=== PATIENT | female | born 1950 | race Caucasian/White ===

== ENCOUNTER 2017-04-19 19:31 | Inpatient (IN) | payer OTHER ==
[~2017-04-19] VITALS: Ht 160 cm; Wt 97.8 kg
--- NOTE | ~2017-04-19 | HC ---
[facility] [place] [address] CONSULTATION Name: AYAH SQUIRES HORTENCIA Room #: 239-[facility] IN M.R.#: [id number] Admission: 04/19/17 Attend Phys: Jose Beltre MD, FAAF Discharge: 04/22/17 Date of : 54 Report #: [id number] THIS REPORT FOR: //name// CC: Jose Beltre DATE OF SERVICE: 04/20/2017 REASON FOR CONSULTATION: Respiratory failure. IMPRESSION: 1. Acute respiratory failure. 2. Severe sepsis. 3. Right-sided infiltrates, effusion and a question pneumothorax. 4. Chronic kidney disease. 5. Hyperglycemia. 6. Protein calorie malnutrition. 7. Leukocytosis. 8. Thrombocytosis. 9. Bandemia. 10. Altered mental status. PAST MEDICAL HISTORY: Per chart include hypertension, paranoid schizophrenia, ETOH, hemorrhoids, hyperlipidemia, seasonal allergies. HOME MEDICATIONS: Included allopurinol, ketoconazole topical, Lasix, potassium, atorvastatin, metformin, oxybutynin, Latuda. SOCIAL HISTORY: Negative ETOH. REVIEW OF SYSTEMS: Unobtainable. PHYSICAL EXAMINATION: VITAL SIGNS: Poor dentition, currently intubated. LUNGS: Decreased breath sounds on right. HEART: Rate occasionally irregular. ABDOMEN: Bowel sounds present. EXTREMITIES: Showed no edema. LABORATORY DATA: 7.43, pCO2 of 27, pO2 66 on 5 liters. BUN 18, creatinine 1.7. Potassium 3.7. Glucose 251. Albumin 23. ProBNP 1204. White count 14.2, hemoglobin 12.9, D-dimer 3.93. Chest x-ray difficult to read, opacification lateral right chest wall. There was a question of pneumothorax. V/Q scan nondiagnostic, lactate 5.7. Repeat chest showed worsening in [facility] [address] [place] [address] CONSULTATION Name: AYAH SQUIRES [facility] Room #: 239-P DIS IN M.R.#: [id number] Admission: 04/19/17 Attend Phys: [facility] Discharge: 04/22/17 Date of : 54 Report #: [id number] opacification, right chest, question small apical pneumothorax. Repeat chest, endotracheal tube in place. <ELECTRONICALLY SIGNED> By: Emma Parrish MD 05/11/17 1503 [id number] [id number] Emma Parrish MD /nt
--- NOTE | ~2017-04-19 | CNG ---
[facility] [place] [address] CYTO-NONGYN REPORT PROCEDURE Name: JUANA SQUIRES Room #: 239-P ADM IN M.R.#: [id number] Admission: 04/19/17 Date of : 54 Discharge: Report #: [id number] Path Case #: [id number] CYTOPATHOLOGY REPORT COLLECTION DATE: 04/20/2017 RECEIVED DATE: 04/20/2017 SUBMITTING PHYS: Dr. Emma Parrish OTHER PHYS: Dr. Jose Beltre CLINICAL HISTORY: Septic shock, CAP. SPECIMEN(S) RECEIVED: A.Pleural fluid * * * * * * * * * * * * FINAL DIAGNOSIS: A. Pleural fluid: - No malignant cells identified. - Reactive mesothelial cells with abundant acute and chronic inflammatory cells. PATHOLOGIST: Vanita Soriano M.D. REPORT ELECTRONICALLY SIGNED BY: Vanita Soriano M.D. DATE/TIME: 04/21/2017 16:25 * * * * * * * * * * * * GROSS PATHOLOGY: A. Pleural fluid: The specimen is submitted unfixed, labeled "Juana Squires". Received by the Cytology Department is four mL of cloudy yellow fluid. One ThinPrep slide and a cell block were prepared. (clt 04.20.2017) INFORMATION SYSTEMS ADMINISTRATOR(S): SALVATORE Garrison(ASCP) INITIAL CPT CODE(S): A; 11572, 96403 Professional services performed by [facility] at [facility] , [place] [address] Technical services performed by [facility] at [address] [place] [address]., [address], [place] [address]. [facility] [address] [place] [address], [facility] [address] [place] [address] PHONE: [phone] [facility] [address] [place] [address] CYTO-NONGYN REPORT PROCEDURE Name: JUANA SQUIRES HORTENCIA Room #: 239-P ADM IN M.R.#: [id number] Admission: 04/19/17 Date of : 54 Discharge: Report #: [id number] Path Case #: [id number] DIRECTOR: Stephen Mccoy M.D. * * * END OF REPORT * * *
--- NOTE | ~2017-04-19 | EKG ---
[address] [address] ELECTROCARDIOGRAM REPORT Name: AYAH SQUIRES Room #: 239-P ADM IN M.R.#: [id number] Admission: 04/19/17 Attend Phys: Jose Beltre MD, FAAF Discharge: Date of : 54 Report #: [id number] THIS REPORT FOR: //name// [facility] ED Test Date: 2017-04-19 Test Time: 19:47:07 Pat Name: AYAH SQUIRES Department: Room: 239 Gender: F Chef Assistant: jeffery faulkner : 1950 Requested By: Aramis Chow Order Number: [id number] MD: Ajit Evans Measurements Intervals Forbes Rate: 147 P: 43 NC: 122 QRS: 7 QRSD: 81 T: -14 QT: 285 QTc: 446 Interpretive Statements Possible atrial fibrillation vs atrial tachycardia Borderline T abnormalities, inferior leads Compared to ECG 12/06/2012 20:42:39 T-wave abnormality now present Sinus rhythm no longer present Electronically Signed On 04-20-2017 13:16:39 CDT by Ajit Evans [email or web address] <ELECTRONICALLY SIGNED> By: Ajit Evans MD 04/20/17 1316 46 46 Ajit Evans MD /EPI
--- NOTE | ~2017-04-19 | 2DMMODE ---
[facility] [address] [place] [address] 2 D/M-MODE ECHOCARDIOGRAM Name: AYAH SQUIRES HORTENCIA Room #: 239-P ADM IN .R.#: [id number] Admission: 04/19/17 Attend Phys: Jose Beltre MD, Discharge: Date of : 54 Date of Service: 04/20/17 1429 Report #: [id number] THIS REPORT FOR: //name// APPROVED REPORT Study performed: 04/20/2017 11:08:48 EXAM: Comprehensive 2D, Doppler, and color-flow Echocardiogram Patient Location: ICU Room #: 239 Status: routine Other Information Study Quality: Fair Indications Hypertension/HDD 2D Dimensions RVDd: 37.80 mm LVEF(%): 77.02 (>50%) IVSd: 11.59 (7-11mm) LVOT Diam: 18.10 (18-24mm) LVDd: 27.76 mm PWd: 11.71 (7-11mm) Ascending Ao: 26.08 (22-36mm) LVDs: 15.55 (25-40mm) Aortic Root: 28.63 mm Edmond's LVEF: 77.02 % Volumes Left Atrial Volume (Systole) Single Plane 4CH: 23.16 mL Single Plane 2CH: 19.99 mL LA ESV Index: 13.00 mL/m2 Aortic Valve AoV Peak Glynn.: 1.45 m/s AO Peak Gr.: 8.39 mmHg LVOT Max P.89 mmHg LVOT Max V: 1.21 m/s YASMIN Vmax: 2.16 cm2 Mitral Valve E/A Ratio: 1.1 MV Decel. Time: 261.85 ms MV E Max Glynn.: 0.65 m/s MV A Glynn.: 0.57 m/s MV PHT: 75.94 ms IVRT: 92.27 ms [facility] [address] [place] [address] 2 D/M-MODE ECHOCARDIOGRAM Name: AYAH SQUIRES [facility] Room #: 239-P [facility] IN ..#: [id number] Admission: 04/19/17 Attend Phys: Jose Beltre MD, Discharge: Date of : 54 Date of Service: 04/20/17 1429 Report #: [id number] Pulmonary Valve PV Peak Glynn.: 0.99 m/s PV Peak Gr.: 3.89 mmHg Pulmonary Vein P Vein S: 0.45 m/s P Vein A: 0.26 m/s P Vein D: 0.32 m/s P Vein A Dur.: 96.9 msec P Vein S/D Ratio: 1.41 Tricuspid Valve TR Peak Glynn.: 3.82 m/s TR Peak Gr.: 58.28 mmHg Left Ventricle The left ventricle is normal size. Mild concentric left ventricular hypertrophy. Left ventricular systolic function is hyperdynamic. LVEF is >70%. This study is not technically sufficient to allow evaluation of the LV diastolic function. Right Ventricle The right ventricle is normal size. The right ventricular systolic function is normal. Atria The left atrium size is normal. The right atrium size is normal. Aortic Valve The aortic valve is normal in structure. No aortic regurgitation is present. There is no aortic valvular stenosis. Mitral Valve The mitral valve is normal in structure. Trace to mild mitral regurgitation. No evidence of mitral valve stenosis. Tricuspid Valve The tricuspid valve is normal in structure. There is moderate tricuspid regurgitation. The right atrial pressure is estimated at mmHg. There is moderate pulmonary hypertension. The estimated PAP was 58 mmHg plus the right atrial pressure. Pulmonic Valve The pulmonary valve is normal in structure. There is no pulmonic valvular regurgitation. Great Vessels [facility] [address] [place] [address] 2 D/M-MODE ECHOCARDIOGRAM Name: AYAH SQUIRES [facility] Room #: 239-P [facility] IN .R.#: [id number] Admission: 04/19/17 Attend Phys: Jose Beltre MD, Discharge: Date of : 54 Date of Service: 04/20/17 1429 Report #: [id number] The aortic root is normal in size. IVC is not visualized. Pericardium There is no pericardial effusion. <Conclusion> The left ventricle is normal size. LVEF is >70%. The aortic valve is normal in structure. The mitral valve is normal in structure. Trace to mild mitral regurgitation. The tricuspid valve is normal in structure. There is moderate tricuspid regurgitation. The right atrial pressure is estimated at mmHg. There is moderate pulmonary hypertension. The estimated PAP was 58 mmHg plus the right atrial pressure. <ELECTRONICALLY SIGNED> By: Finesse Reyes MD 04/20/17 1429 1429 1429 Finesse Reyes MD /INF
[~2017-04-19 19:31] MED LIST: ACETAMINOPHEN325 M1 PO; ALAVERT10 MG PO; ANAPROX DS550 MG PO; BACTRIM DS TAB1 EACH PO; BISMATROL262 MG/15 PO; CENTRUM SILVER1 EAC1 PO; CIPROFLOXACIN500 M1 PO; COLCHICINE 0.60.6 M1 PO; EC-NAPROSYN500 MG PO; ENABLEX15 MG PO; FANAPT1 EACH PO; FUROSEMIDE 40 M40 M1 PO; LATUDA40 MG PO; LISINOPRIL20 MG PO; MAALOX SUSPENS148 ML PO; MACROBID 100 M100 M1 PO; NORCO 7.5-3251 EACH PO; ONE-A-DAY WOMENS PO; PRINZIDE 20-121 EACH PO; PRISTIQ50 M1 PO; ROZEREM 8 MG TAB8 M1 PO; SIMVASTATIN20 MG PO; TOVIAZ8 MG PO; VIIBRYD40 MG PO; ZOCOR 20 MG TAB20 M1 PO
[2017-04-19 19:32] VITALS: BP 114/64; BP 123/64
[2017-04-19 19:56] LABS: HEMATOCRIT 40.1 % (37.0-47.0); HEMOGLOBIN 12.9 gm/dL (12.0-15.0); MANUAL DIFF YES; MCH 28.9 pg (26.0-34.0); MCHC 32.1 g/dL (28.0-37.0); MCV 90.2 fL (80.0-100.0); PLATELET COUNT 608 thou/uL (150-400); RBC 4.45 mil/uL (4.20-5.00); RDW 15.7 % (10.5-14.5); WBC 14.2 thou/uL (4.0-11.0)
[2017-04-19 20:09] LABS: ANION GAP 18 mmol/L (7-16); BUN 18 mg/dL (7-18); CALCIUM 9.5 mg/dL (8.5-10.1); CHLORIDE 98 mmol/L (98-107); CO2 21 mmol/L (21-32); CREATININE 1.7 mg/dL (0.6-1.0); GLUCOSE 251 mg/dL (74-106); POTASSIUM 3.7 mmol/L (3.5-5.1); SODIUM 137 mmol/L (136-145)
[2017-04-19 20:11] LABS: ABG SAMPLE TYPE ARTERIAL; BE(vivo) -5.1 mmol/L (-2 to +3); HCO3 17.7 mmol/L (22.0-26.0); LACTATE 6.53 mmol/L (0.5-2.0); O2(CT) 17.2 mL/dL (15.0-23.0); O2Hb 91.3 % (92.0-98.0); PCO2 27.1 mmHg (35.0-45.0); PO2 66.1 mmHg (80.0-100.0); STICK SITE R.RADIAL; pH 7.432 (7.360-7.450); tCO2 18.5 mmol/L (24.0-30.0)
[2017-04-19 20:13] LABS: ALBUMIN 2.3 g/dL (3.4-5.0); ALKALINE PHOSPHATASE 107 U/L (46-116); SGOT 58 U/L (15-37); SGPT 61 U/L (30-65); TOTAL BILIRUBIN 0.8 mg/dL (<0.1-1.0); TOTAL PROTEIN 7.5 g/dL (6.4-8.2); TROPONIN-I < 0.04 ng/mL (<0.04-0.07)
[2017-04-19 20:16] LABS: MAGNESIUM 0.8 mg/dL (1.8-2.4)
[2017-04-19 20:20] LABS: ABSOLUTE NEUTROPHILS 12.4 thou/uL (1.4-8.2); TOTAL CELL COUNT 100
[2017-04-19] MEDS ORDERED: K-DUR 20 MEQ T20 MEQ PO (21:06)
[2017-04-19] MEDS ORDERED: ALLOPURINOL 30300 M2 PO (21:06)
[2017-04-19] MEDS ORDERED: LASIX 20 MG TAB20 MG PO (21:06)
[2017-04-19] MEDS ORDERED: KETOCONAZOLE120 ML TOP (21:06)
[2017-04-19] MEDS ORDERED: ATORVASTATIN CA40 MG PO (21:07)
[2017-04-19] MEDS ORDERED: METFORMIN HCL1000 MG PO (21:07)
[2017-04-19] MEDS ORDERED: DITROPAN XL5 MG PO (21:07)
[2017-04-19 23:26] LABS: APTT 29.9 Seconds (24.5-32.8); INR 1.3; PROTIME 13.2 Seconds (9.3-11.4)
[2017-04-20] VITALS (32 sets, daily range): BP systolic 62–148; BP diastolic 40–98
[2017-04-20 02:22] LABS: ABG SAMPLE TYPE ARTERIAL; BE(vivo) -6.4 mmol/L (-2 to +3); FIO2 100 %; HCO3 19.2 mmol/L (22.0-26.0); LACTATE 2.92 mmol/L (0.5-2.0); O2(CT) 16.7 mL/dL (15.0-23.0); O2Hb 93.3 % (92.0-98.0); PCO2 38.6 mmHg (35.0-45.0); PO2 79.9 mmHg (80.0-100.0); pH 7.315 (7.360-7.450); sO2 94.9 % (92.0-98.0); tCO2 20.4 mmol/L (24.0-30.0)
[2017-04-20 02:23] LABS: TIDAL VOLUME 450 ml
[2017-04-20 05:18] LABS: APTT 36.9 Seconds (24.5-32.8); INR 1.4
[2017-04-20 05:55] LABS: POTASSIUM 4.3 mmol/L (3.5-5.1)
[2017-04-20 05:56] LABS: CALCIUM 8.3 mg/dL (8.5-10.1); CREATININE 1.5 mg/dL (0.6-1.0); TOTAL BILIRUBIN 0.7 mg/dL (<0.1-1.0); TOTAL PROTEIN 5.8 g/dL (6.4-8.2)
[2017-04-20 06:05] LABS: MANUAL DIFF YES; RBC 4.52 mil/uL (4.20-5.00); WBC 14.2 thou/uL (4.0-11.0)
[2017-04-20 06:06] LABS: HEMATOCRIT 42.6 % (37.0-47.0); HEMOGLOBIN 12.9 gm/dL (12.0-15.0); MCH 28.6 pg (26.0-34.0); MCHC 30.4 g/dL (28.0-37.0); MCV 94.1 fL (80.0-100.0); RDW 16.6 % (10.5-14.5)
[2017-04-20 08:38] LABS: ABSOLUTE NEUTROPHILS 11.4 thou/uL (1.4-8.2); METAMYELOCYTES 6 %; MYELOCYTES 2 %; PLATELET COUNT 379 thou/uL (150-400); TOTAL CELL COUNT 100
[2017-04-20 08:39] LABS: PLATELET ESTIMATE NORMAL
[2017-04-20 09:32] LABS: ABG SAMPLE TYPE ARTERIAL; BE(vivo) -12.8 mmol/L (-2 to +3); HCO3 14.7 mmol/L (22.0-26.0); LACTATE 2.79 mmol/L (0.5-2.0); O2(CT) 15.7 mL/dL (15.0-23.0); O2Hb 93.5 % (92.0-98.0); PCO2 39.3 mmHg (35.0-45.0); PO2 88.4 mmHg (80.0-100.0); STICK SITE LINE; sO2 94.7 % (92.0-98.0); tCO2 15.9 mmol/L (24.0-30.0)
[2017-04-20 09:33] LABS: TIDAL VOLUME 450 ml
[2017-04-20 09:59] LABS: ABSOLUTE NEUTROPHILS 11.7 thou/uL (1.4-8.2); BASOPHILS 0.5 % (0.0-2.0); HEMATOCRIT 35.1 % (37.0-47.0); HEMOGLOBIN 11.1 gm/dL (12.0-15.0); MCH 28.8 pg (26.0-34.0); MCHC 31.7 g/dL (28.0-37.0); MCV 91.1 fL (80.0-100.0); POLYS 84.5 % (36.0-66.0); RBC 3.85 mil/uL (4.20-5.00); RDW 16.1 % (10.5-14.5); WBC 13.8 thou/uL (4.0-11.0)
[2017-04-20 10:05] LABS: MANUAL DIFF NO; PLATELET COUNT 454 thou/uL (150-400)
[2017-04-20 10:07] LABS: CALCIUM 6.7 mg/dL (8.5-10.1); CREATININE 1.3 mg/dL (0.6-1.0)
[2017-04-20 10:08] LABS: AMYLASE 14 U/L (25-115)
[2017-04-20 10:09] LABS: ABG SAMPLE TYPE VENOUS; BE(vivo) -12.9 mmol/L (-2 to +3); HCO3 15.4 mmol/L (22.0-26.0); O2(CT) 14.2 mL/dL (15.0-23.0); PCO2 VENOUS 44.2 mmHg (41.0-51.0); PO2 VENOUS 55.5 mmHg (35.0-45.0); sO2 VENOUS 80.2 % (65.0-85.0); tCO2 16.7 mmol/L (24.0-30.0)
[2017-04-20 10:10] LABS: ALBUMIN 1.2 g/dL (3.4-5.0); PHOSPHORUS 4.5 mg/dL (2.5-4.9)
[2017-04-20 10:10] LABS: STICK SITE LINE
[2017-04-20 10:12] LABS: APTT 36.3 Seconds (24.5-32.8); FIBRINOGEN 487.7 mg/dL (210-360)
[2017-04-20 10:28] LABS: CLARITY CLOUDY; COLOR YELLOW; TOTAL VOLUME 10 mL
[2017-04-20 10:46] LABS: URINE BILIRUBIN NEGATIVE (Negative); URINE BLOOD NEGATIVE (Negative); URINE COLOR YELLOW; URINE GLUCOSE-RANDOM* NEGATIVE (Negative); URINE KETONES NEGATIVE (Negative); URINE NITRITE NEGATIVE (Negative); URINE PROTEIN (DIPSTICK) TRACE (Negative); URINE SPECIFIC GRAVITY >= 1.030 (1.003-1.035)
[2017-04-20 11:03] LABS: ABG SAMPLE TYPE VENOUS; BE(vivo) -12.3 mmol/L (-2 to +3); HCO3 15.3 mmol/L (22.0-26.0); LACTATE 3.02 mmol/L (0.5-2.0); O2(CT) 12.2 mL/dL (15.0-23.0); O2Hb VENOUS 64.7 (65.0-85.0); PCO2 VENOUS 41.2 mmHg (41.0-51.0); PO2 VENOUS 40.9 mmHg (35.0-45.0); STICK SITE LINE; sO2 VENOUS 64.5 % (65.0-85.0); tCO2 16.6 mmol/L (24.0-30.0)
[2017-04-20 12:04] LABS: ABG SAMPLE TYPE VENOUS; BE(vivo) -12.2 mmol/L (-2 to +3); HCO3 14.5 mmol/L (22.0-26.0); LACTATE 2.92 mmol/L (0.5-2.0); O2(CT) 11.8 mL/dL (15.0-23.0); O2Hb VENOUS 67.7 (65.0-85.0); PCO2 VENOUS 36.2 mmHg (41.0-51.0); PO2 VENOUS 40.9 mmHg (35.0-45.0); sO2 VENOUS 66.9 % (65.0-85.0); tCO2 15.7 mmol/L (24.0-30.0)
[2017-04-20 12:05] LABS: STICK SITE LINE
[2017-04-20 13:00] LABS: ABG SAMPLE TYPE VENOUS; BE(vivo) -11.9 mmol/L (-2 to +3); LACTATE 3.26 mmol/L (0.5-2.0); O2(CT) 12.4 mL/dL (15.0-23.0); O2Hb VENOUS 68.4 (65.0-85.0); PCO2 VENOUS 37.4 mmHg (41.0-51.0); PO2 VENOUS 40.7 mmHg (35.0-45.0); STICK SITE LINE; sO2 VENOUS 66.4 % (65.0-85.0); tCO2 16.1 mmol/L (24.0-30.0)
[2017-04-20 13:06] LABS: MANUAL DIFF YES
[2017-04-20 13:07] LABS: BF NUCLEATED CELLS 15525; BF RBC 850
[2017-04-20 13:20] LABS: BF MACROPHAGE 8; BF NEUTROPHILS 87
[2017-04-20 13:26] LABS: CALCIUM 6.9 mg/dL (8.5-10.1); CREATININE 1.4 mg/dL (0.6-1.0); POTASSIUM 3.5 mmol/L (3.5-5.1)
[2017-04-20 13:30] LABS: ABG SAMPLE TYPE ARTERIAL; BE(vivo) -12.5 mmol/L (-2 to +3); HCO3 13.5 mmol/L (22.0-26.0); LACTATE 3.78 mmol/L (0.5-2.0); O2(CT) 17.3 mL/dL (15.0-23.0); O2Hb 96.4 % (92.0-98.0); PCO2 31.4 mmHg (35.0-45.0); PO2 105.1 mmHg (80.0-100.0); STICK SITE LINE; sO2 97.1 % (92.0-98.0); tCO2 14.4 mmol/L (24.0-30.0)
[2017-04-20 13:57] LABS: APTT 34.6 Seconds (24.5-32.8); FIBRINOGEN 512.9 mg/dL (210-360); INR 1.3; PROTIME 13.7 Seconds (9.3-11.4)
[2017-04-20 14:00] LABS: ABG SAMPLE TYPE VENOUS; BE(vivo) -11.7 mmol/L (-2 to +3); HCO3 14.9 mmol/L (22.0-26.0); LACTATE 3.42 mmol/L (0.5-2.0); O2(CT) 11.5 mL/dL (15.0-23.0); O2Hb VENOUS 66.4 (65.0-85.0); PCO2 VENOUS 36.1 mmHg (41.0-51.0); PO2 VENOUS 39.8 mmHg (35.0-45.0); STICK SITE LINE; sO2 VENOUS 65.9 % (65.0-85.0)
[2017-04-20 15:24] LABS: ABG SAMPLE TYPE VENOUS; BE(vivo) -10.8 mmol/L (-2 to +3); HCO3 15.6 mmol/L (22.0-26.0); LACTATE 3.26 mmol/L (0.5-2.0); O2(CT) 10.6 mL/dL (15.0-23.0); PCO2 VENOUS 36.3 mmHg (41.0-51.0); sO2 VENOUS 58.5 % (65.0-85.0); tCO2 16.7 mmol/L (24.0-30.0)
[2017-04-20 15:25] LABS: ABG COMMENT CMV; STICK SITE PICC; TIDAL VOLUME 450 ml
[2017-04-20 17:55] LABS: CREATININE 1.4 mg/dL (0.6-1.0)
[2017-04-21 00:01] VITALS: BP 98/61
[2017-04-21 02:00] VITALS: BP 107/61
[2017-04-21 04:00] VITALS: BP 83/47
[2017-04-21 04:15] VITALS: BP 100/77
[2017-04-21 04:41] LABS: HEMATOCRIT 38.7 % (37.0-47.0); HEMOGLOBIN 12.2 gm/dL (12.0-15.0); MCH 28.3 pg (26.0-34.0); MCHC 31.5 g/dL (28.0-37.0); MCV 89.9 fL (80.0-100.0); PLATELET COUNT 393 thou/uL (150-400); RBC 4.31 mil/uL (4.20-5.00); RDW 16.2 % (10.5-14.5); WBC 12.6 thou/uL (4.0-11.0)
[2017-04-21 04:55] LABS: ALBUMIN 1.1 g/dL (3.4-5.0); CALCIUM 7.3 mg/dL (8.5-10.1); CREATININE 1.7 mg/dL (0.6-1.0); MAGNESIUM 1.9 mg/dL (1.8-2.4); PHOSPHORUS 4.1 mg/dL (2.5-4.9); POTASSIUM 3.8 mmol/L (3.5-5.1); TOTAL BILIRUBIN 0.6 mg/dL (<0.1-1.0); TOTAL PROTEIN 4.7 g/dL (6.4-8.2)
[2017-04-21 04:59] LABS: MANUAL DIFF YES
[2017-04-21 05:22] LABS: ABSOLUTE NEUTROPHILS 10.5 thou/uL (1.4-8.2); ANISOCYTOSIS 1+; LARGE PLATELETS OCCASIONAL; METAMYELOCYTES 2 %; MYELOCYTES 1 %; NUCLEATED RBCS 1 /100WBC; TOTAL CELL COUNT 100
[2017-04-21 05:40] LABS: ABG SAMPLE TYPE ARTERIAL; BE(vivo) -8.7 mmol/L (-2 to +3); HCO3 15.6 mmol/L (22.0-26.0); LACTATE 4.25 mmol/L (0.5-2.0); O2(CT) 17.1 mL/dL (15.0-23.0); O2Hb 93.5 % (92.0-98.0); PCO2 29.4 mmHg (35.0-45.0); PO2 76.8 mmHg (80.0-100.0); STICK SITE LINE; pH 7.343 (7.360-7.450); sO2 94.9 % (92.0-98.0); tCO2 16.5 mmol/L (24.0-30.0)
[2017-04-21 05:41] LABS: TIDAL VOLUME 450 ml
[2017-04-21 08:02] VITALS: BP 69/41
[2017-04-21 12:09] LABS: BODY FLUID ALBUMIN 1.3 g/dL (()); BODY FLUID AMYLASE 11 U/L (()); BODY FLUID PROTEIN 2.7 g/dL (())
[2017-04-21 13:11] LABS: BODY FLUID GLUCOSE 27 mg/dL (()); BODY FLUID LDH 2450 IU/L (())
[2017-04-22 09:14] VITALS: BP 99/10
== END 2017-04-22 09:29 | DRG 871 ==
LOC: ER 19:31 → ICU 23:23 → EROBS 23:23 → ICU 04-20 02:12
PROVIDERS: Emergency Medicine; Family Medicine; Internal Medicine Nephrology; Internal Medicine Pulmonary Disease
PROC: 3E1M38Z Irrigation of Peritoneal Cavity using Irrigating Substance, Percutaneous Approach (ICD-10-PCS; principal; 2017-04-20)
PROC: 0W9900Z Drainage of Right Pleural Cavity with Drainage Device, Open Approach (ICD-10-PCS; principal; 2017-04-20)
PROC: 02HV33Z Insertion of Infusion Device into Superior Vena Cava, Percutaneous Approach (ICD-10-PCS; 2017-04-20)
PROC: 0BH17EZ Insertion of Endotracheal Airway into Trachea, Via Natural or Artificial Opening (ICD-10-PCS; 2017-04-20)
PROC: 5A1945Z Respiratory Ventilation, 24-96 Consecutive Hours (ICD-10-PCS; 2017-04-20)
PROC: 03HY32Z Insertion of Monitoring Device into Upper Artery, Percutaneous Approach (ICD-10-PCS; 2017-04-20)
DX: A41.9 Sepsis, unspecified organism (principal); R65.21 Severe sepsis with septic shock; J96.01 Acute respiratory failure with hypoxia; J86.9 Pyothorax without fistula; K65.9 Peritonitis, unspecified; N17.9 Acute kidney failure, unspecified; J90 Pleural effusion, not elsewhere classified; I12.9 Hypertensive chronic kidney disease with stage 1 through stage 4 chronic kidney disease, or unspecified chronic kidney disease; N18.9 Chronic kidney disease, unspecified; F20.9 Schizophrenia, unspecified; E78.5 Hyperlipidemia, unspecified; E83.42 Hypomagnesemia; R73.9 Hyperglycemia, unspecified; D47.3 Essential (hemorrhagic) thrombocythemia; D64.9 Anemia, unspecified; Z79.899 Other long term (current) drug therapy; Z66 Do not resuscitate; Z51.5 Encounter for palliative care
CPT/HCPCS: 10078; 50093; 50101; 50172; 50331; 50386; 50497; 51412; 56524; 56526; 56530; 56639; 62110; 62900; 65002; 65020; 65040; 65043; 65045